=== PATIENT | female | born 1955 | race Caucasian/White ===

== ENCOUNTER 2017-01-07 07:05 | Day surgery (SDC) | payer MEDICARE ==
--- NOTE | 2016-12-30 10:46 | HP ---
HISTORY AND PHYSICAL: DATE OF PLANNED ADMISSION/SURGERY: 01/07/17 HISTORY OF PRESENT ILLNESS: Mrs. Aguilera is a 61-year-old white female who is admitted with a distal left ureteral calculus, status post placement of left ureteral stent for left ureteroscopy, laser lithotripsy, and left ureteral stent exchange. Mrs. Aguilera had an episode of renal colic many years ago. She was doing fine until 2 weeks prior to this admission when she was in [place], [place] and she had developed severe symptoms of left renal colic. She went to an emergency room where she had a noncontrast CT of the abdomen and pelvis. The study showed a 1 cm calculus in the distal left ureter associated with left hydronephrosis and extravasation of urine around the left kidney. She had urgent placement of a left ureteral stent under antibiotic coverage. Because of positive urine for infection, she did not undergo a ureteroscopy for definitive treatment of the stone. She was kept in the hospital for 2 days on antibiotics and was discharged home on antibiotics. She did fine afterwards. She came back to [place], was evaluated by Dr. Landrum who referred her here to our office for definitive treatment of her stone. The patient had a KUB which showed the left ureteral stent in good position, and a radiopaque calculus in the distal left ureter measuring 10 x 5 cm. PAST MEDICAL HISTORY AND SYSTEM REVIEW: The patient has chronic rheumatoid arthritis and had been maintained on prednisone 4 mg daily. She takes pain medication with p.o. morphine and MS Contin as needed for her arthritis pains. She is hypertensive, maintained on lisinopril/hydrochlorothiazide 10/12.5 mg daily. She is on potassium supplements. She has a history of GERD on omeprazole 20 mg daily. She has a history of asthma, on Symbicort as needed. She has dyslipidemia, on simvastatin 40 mg daily. She had a past history of pericarditis; however, her cardiology evaluation was negative. She denies any cardiac or pulmonary symptoms at this time. ALLERGIES: She reports being allergic to PENICILLIN, METHOTREXATE, PLAQUENIL, and ALLOPURINOL. FAMILY HISTORY: Positive for coronary artery disease. The patient is retired and lives in [place], [place]. PHYSICAL EXAMINATION GENERAL: Overweight white female who looks older than her age, who is in no acute pain. VITAL SIGNS: Blood pressure 120/80, pulse of 80. LUNGS: Clear. HEART: Regular and rhythmic, no murmurs. ABDOMEN: Soft. No masses, no tenderness, and no CVA tenderness. EXTREMITIES: She has no leg edema. IMPRESSION: 1. A 1 cm distal left ureteral calculus, status post placement of a left ureteral stent on 12/21/16, with the stone in the same position in the distal left ureter. 2. Rheumatoid arthritis, chronic and symptomatic. 3. Hypertension. 4. Gastroesophageal reflux disease. 5. Hyperlipidemia. 6. Past history of pericarditis. PLAN/RECOMMENDATIONS: Is for cystoscopy, left ureteroscopy, laser lithotripsy, and left ureteral stent exchange. I discussed the above plans in detail with the patient and her and all their questions were answered. Note to the anesthesiologist: the patient told me she was instructed to avoid having hyperextension of the neck for intubation because of history of cervical spine arthritis. CC: Osmani Landrum MD* [id number]/CPS #: [id number] MTDD
[~2017-01-07 07:05] MED LIST: Buffered Lidocaine 1% SYRIN* 3 ML/SYR SYRINGE INTRADERM ONE; Famotidine IV* 10 MG/ML 2 ML (20 mg) IV ONE; Famotidine IV* 10 MG/ML 2 ML (20 mg) ONE; Levofloxacin 750 MG IVPREMIX(* 0 MG/0 ML BAG ONE
[2017-01-07] MEDS ORDERED: Iohexol 180 (CONTRAST) 10 ML SDV IV ONE (08:38)
[2017-01-07] MEDS ORDERED: fentaNYL* 50 MCG/ML 2 ML VIAL (100 MCG VIAL) ONE (08:40)
[2017-01-07] MEDS ORDERED: Midazolam* 1 MG/ML 5 ML VIAL (5 MG) ONE (08:40)
[2017-01-07] MEDS ORDERED: Lidocaine 2% PF * 5 ML VIAL ONE (08:47)
[2017-01-07] MEDS ORDERED: Dexamethasone IV* 4 MG/ML 1 ML (4 MG) ONE (08:47)
[2017-01-07] MEDS ORDERED: Ketorolac INJ* 30 MG/ML 1 ML VIAL ONE (08:47)
[2017-01-07] MEDS ORDERED: Ondansetron INJ* 2 MG/ML VIAL ONE (08:47)
[2017-01-07] MEDS ORDERED: Propofol* 10 MG/ML 20 ML BTL IV PUSH ONE (08:47)
[2017-01-07] MEDS ORDERED: DiMENhydriNATE IV* 50 MG/ML VIAL IV PUSH PRN (08:52)
[2017-01-07] MEDS ORDERED: Levofloxacin 750 MG IVPREMIX(* 750 MG/150 ML BAG ONE (08:54)
[2017-01-07] MEDS ORDERED: Chloroprocaine 2%* 20 ML VIAL ONE (09:08)
[2017-01-07] MEDS ORDERED: HYDROmorphone* 1 MG/ML 1 ML SYR ONE (11:09)
[2017-01-07] MEDS ORDERED: oxyCODONE/Acetamin 5/325 MG* TAB ONE (11:09)
[2017-01-07] MEDS: oxyCODONE/Acetamin 5/325 MG* TAB PO PRN ×2 (11:12→11:13)
[2017-01-07] MEDS: HYDROmorphone* 1 MG/ML 1 ML SYR IV PRN ×2 (11:12→11:41)
[2017-01-07 11:53] VITALS: BP 167/87
--- NOTE | 2017-01-08 06:13 | OP ---
DATE OF OPERATION: 01/07/17 [facility] DATE OF : 53 SURGEON: Dr. Des Louise ANESTHESIOLOGIST: Dr. Moya. ANESTHESIA: Spinal. PRE-OP DIAGNOSES: 1. Distal left ureteral calculus. 2. Status post placement, left ureteral stent. POST-OP DIAGNOSES: 1. Distal left ureteral calculus (1.2 cm). 2. Status post placement, left ureteral stent. 3. Left hydronephrosis. OPERATIVE PROCEDURE: 1. Cystoscopy. 2. Left ureteroscopy and laser lithotripsy of left ureteral calculus. 3. Left retrograde pyelography and placement of left ureteral stent (7-Bruneian). INDICATION FOR PROCEDURE: Mrs. Aguilera is a 61-year-old female who developed symptoms of left renal colic secondary to a 1.2 cm calculus while visiting [place], [place]. She had urgent placement of left ureteral stent. Because of concern about urinary tract infection, no attempt was made for treatment of the stone and the patient was treated with antibiotics. On her KUB prior to this admission, there is a 1.5 cm calculus in the distal left ureter adjacent to the stent. Because of the above history and findings, the patient is admitted for definitive treatment of the stone. PATHOLOGY: The patient has a pessary in place and has a significant degree of cystocele. This distorted the trigone making it difficult to identify the ureteral orifice. Upon left ureteroscopy, a 1.2 cm calculus was noted in the distal left ureter about 3 to 4 cm above the level of the orifice. The calculus was impacted. It was dark in color consistent with calcium oxalate monohydrate. The stone was hard to break. Left retrograde pyelography showed [id number] left hydronephrosis. DESCRIPTION OF PROCEDURE: After successful spinal anesthesia, the patient was placed in the lithotomy position and was prepped and draped for a cystoscopy. There was a partial stricture of the urethra that needed to be dilated to introduce the 22 Fr cystoscope. The bladder was inspected. The distal limb of the stent was grasped and pulled out to the level of the urethral meatus. A flexible tipped guidewire was then fed through the lumen of the stent and positioned in the area of the renal pelvis and the stent was removed. A size 6.5 semi-rigid ureteroscope was then introduced inside the bladder. The left ureteral orifice was difficult to identify. 4 x 4 gauze were then placed in the vagina to partially reduce the cystocele elevating the trigone and allowing the visualization of the orifice. A flexible tipped basket was then fed through the port of the ureteroscope and the flexible tip was then introduced inside of the left ureteral orifice guiding the ureteroscope into the left ureter with no trauma. The calculus was identified. It was impacted. Using the 550 micron laser fiber, the stone was broken into multiple small pieces. As mentioned earlier, the stone was hard and required lot of lasering to break. At the end, the fragmentation of the stone was very satisfactory. The fragments were then extracted using a basket. Inspection of the ureteral wall showed no evidence of any injury. Retrograde pyelography was then performed demonstrating a moderate left hydronephrosis. A size 7-Bruneian stent was then placed with the proximal end coiling in the renal pelvis and distal end coiling inside the bladder. The bladder was then irrigated and the stone fragments were evacuated and sent for stone analysis. The patient tolerated the procedure well and left the operating room in good condition. The specimen was fragments of left ureteral calculus. The plan is to see the patient in the office in about 10 days and the stent will be removed. CC: Dr. Landrum's office * [id number]/CPS #: [id number] NEELIMA
--- NOTE | 2017-01-10 07:55 | RAD ---
INDICATION: Left ureteral stone, stent replacement. COMPARISON: Correlation is made with a prior renal ultrasound from June 14, 2013. TECHNIQUE: 10 seconds of intermittent fluoroscopic guidance were provided and 3 spot films of the abdomen were centered on the left side. FINDINGS: There is partial opacification of the left renal collecting system. There is dilatation of the left renal pelvis, calyces and ureter consistent with hydronephrosis. Subsequently there is placement of a double-J stent catheter on the left side which demonstrates normal course. IMPRESSION: INTRAOPERATIVE CONTROL FILMS. CPT II Codes: 6045F
== END 2017-01-07 12:00 | disposition home or self-care (01) ==
LOC: OR 07:05
PROVIDERS: ATTEND Urology
DX: N13.2 Hydronephrosis with renal and ureteral calculous obstruction (principal); M06.9 Rheumatoid arthritis, unspecified; J45.909 Unspecified asthma, uncomplicated; I10 Essential (primary) hypertension; K21.9 Gastro-esophageal reflux disease without esophagitis; E78.5 Hyperlipidemia, unspecified
CPT/HCPCS: 74420; 82365; 88300; A9270-GY; C1876; J1100; J1170; J1885; J2250; J2400; J2405; J2704; J3010

== ENCOUNTER 2021-04-20 09:25 | Observation (INO) ==
[~2021-04-20 09:25] MED LIST changes: +Buffered Lidocaine 1% SYRIN 1 ml INTRADERM ONE; -Buffered Lidocaine 1% SYRIN* 3 ML/SYR SYRINGE INTRADERM ONE; -Famotidine IV* 10 MG/ML 2 ML (20 mg) IV ONE; -Famotidine IV* 10 MG/ML 2 ML (20 mg) ONE; +Ketamine HCL 50 mg/ml 10 ml VIAL (500 MG) ONE; +Lactated Ringers 1000 ml BAG 1,000 ML IV SCH; -Levofloxacin 750 MG IVPREMIX(* 0 MG/0 ML BAG ONE; +Lidocaine 2% PF 5 ML VIAL ONE; +Midazolam 2 mg/2 ml VIAL 1 mg/ml 2 ml VIAL (2 mg) ONE; +Propofol 10 MG/ML 20 ML BTL ONE; +Vancomycin 1,500 MG in NS 0.9% 250 ml 250 ML IVPB ONE; +fentaNYL 100 mcg/2 ml 50 MCG/ML VIAL ONE
[2021-04-20] MEDS ORDERED: ceFAZolin 2 GM in NS PREMIX 2 GM/100 ML BAG IVPB ONE (10:10)
[2021-04-20] MEDS ORDERED: ROPIVACAINE 5 MG/ML 30 ML BTL (0.5%) ONE (10:19)
[2021-04-20] MEDS ORDERED: Vancomycin 1,000 MG VIAL ONE (10:24)
[2021-04-20] MEDS ORDERED: Bupivacaine 0.25% EPI 200,000 30 ML SDV ONE (10:24)
[2021-04-20] MEDS ORDERED: Lidocaine 2% PF 5 ML VIAL ONE (11:26)
[2021-04-20] MEDS ORDERED: Phenylephrine 40 mcg/mL 10mL (400mcg) SYRINGE ONE (11:49)
[2021-04-20] MEDS ORDERED: EPHEDrine (Pressors) 50 MG/ML VIAL ONE (12:05)
[2021-04-20] MEDS ORDERED: Hydrocortisone INJ 100 MG/2ML 2 ML VIAL ONE (12:07)
[2021-04-20] MEDS ORDERED: Ondansetron 4 mg VIAL 2 MG/ML 2 ml VIAL ONE (12:10)
[2021-04-20] MEDS ORDERED: Phenylephrine IV 10 MG/ML 1 ml VIAL ONE (12:12)
[2021-04-20] MEDS ORDERED: Propofol 10 MG/ML 20 ML BTL ONE (12:56)
[2021-04-20] MEDS ORDERED: Lactulose 30 ml UDC PO PRN (13:43)
[2021-04-20] MEDS ORDERED: Ondansetron ODT 4 mg TAB 4 MG TAB PO PRN (13:43)
[2021-04-20] MEDS ORDERED: Magnesium Hydroxide LIQ 30 ML UDC PO PRN (13:43)
[2021-04-20] MEDS ORDERED: Ondansetron 4 mg VIAL 2 MG/ML 2 ml VIAL IV PRN (13:43)
[2021-04-20] MEDS ORDERED: diPHENhydraMINE IV 50 MG/ML 1 ml VIAL (BENADRYL) IV PRN (13:43)
[2021-04-20] MEDS ORDERED: diPHENhydraMINE 25 mg TAB PO PRN (13:43)
[2021-04-20] MEDS ORDERED: Albuterol HFA INHALER 8 gm MDI INH PRN (13:50)
[2021-04-20] MEDS: D5W 1/2 NS 1000 ml BAG 1,000 ML IV SCH (15:12)
[2021-04-20] MEDS: Morphine ER 30 mg TAB ** extended release PO SCH ×2 (15:36→23:05)
[2021-04-20] MEDS: Morphine 2 MG/ML SYRINGE IV PRN ×2 (15:42→22:21)
[2021-04-20] MEDS ORDERED: Acetaminop/Codeine 300mg/30mg TAB PO PRN (17:25)
[2021-04-20] MEDS ORDERED: Nitro 2% OINT (Nitroglycerin) 1 INCH/PAK TOPICAL PRN (17:31)
[2021-04-20] MEDS ORDERED: CMCS: Minocycline 50 mg CAP (NF) PO SCH (18:00)
[2021-04-20] MEDS: Morphine ORAL.SOLN 10 mg 2 mg/ml UDC 5 ml (10 mg) PO PRN (18:39)
[2021-04-20] MEDS: Magnesium Hydroxide LIQ 30 ML UDC PO SCH (21:00)
[2021-04-20] MEDS ORDERED: CMCS: Simvastatin 20 mg TAB (NF) PO SCH (21:00)
[2021-04-20] MEDS: ceFAZolin 1 GM ADVAN 1 GM in NS 0.9% 50 ML 50 ML IVPB SCH (21:01)
[2021-04-20] MEDS: ORPHENADRINE CITRATE 100 MG PO SCH (21:01)
[2021-04-21] MEDS: ceFAZolin 1 GM ADVAN 1 GM in NS 0.9% 50 ML 50 ML IVPB SCH ×2 (02:55→11:06)
[2021-04-21] MEDS: D5W 1/2 NS 1000 ml BAG 1,000 ML IV SCH (02:55)
[2021-04-21 06:17] LABS: Hematocrit 32 % (35-47); Hemoglobin 10.6 g/dL (12.0-16.0); Mean Platelet Volume 7.5 fL (7.4-10.4); Platelet Count 187 10^3/uL (150-450)
[2021-04-21 06:32] LABS: EGFR African American 69.5 (>60); EGFR Non-African American 57.5 (>60); Potassium 3.7 mmol/L (3.5-5.0)
[2021-04-21] MEDS: Morphine ORAL.SOLN 10 mg 2 mg/ml UDC 5 ml (10 mg) PO PRN ×2 (08:01→13:59)
[2021-04-21] MEDS: Morphine ER 30 mg TAB ** extended release PO SCH (08:01)
[2021-04-21] MEDS ORDERED: Potassium Chlor 20 meq TAB.ER PO SCH (09:00)
[2021-04-21] MEDS ORDERED: Vitamin THERAPEUTIC TAB PO SCH (09:00)
[2021-04-21] MEDS: ORPHENADRINE CITRATE 100 MG PO SCH (09:03)
[2021-04-21] MEDS: Magnesium Hydroxide LIQ 30 ML UDC PO SCH (09:03)
[2021-04-21 11:08] VITALS: BP 120/74
== END 2021-04-21 15:00 | disposition home or self-care (01) ==
LOC: SSU 09:25 → OR 09:25 → SSU 15:22
PROVIDERS: ADMIT Orthopaedic Surgery; ATTEND Orthopaedic Surgery